=== PATIENT | male | born 1985 | race Caucasian/White ===

== ENCOUNTER 2019-02-24 08:33 | Emergency (ER) | payer BC, OTHER ==
[2019-02-24 08:43] VITALS: BP 128/79
--- NOTE | 2019-02-24 10:16 | UC ---
GI Bleed HPI - HPI Summary HPI Summary: PATIENT HAS HAD 6-8 MONTHS OF INTERMITTENT WATERY DIARRHEA WHICH SEEMS TO BE WORSE AFTER STRENUOUS EXERCISE. NO CLEAR ASSOCIATION WITH FOOD. NO NAUSEA/ VOMITING. NO PERSONAL HISTORY OF INFLAMMATORY BOWEL DISEASE. STATES HE FEELS LIKE HIS INTESTINAL/DIGESTIVE TRACT HAS BEEN "OFF" FOR SOME YEARS. YESTERDAY HE HAD A SOFT BOWEL MOVEMENT AND WHEN HE WIPED HE NOTICED BRIGHT RED BLOOD ON THE TOILET PAPER. THIS MORNING HE HAD A BOWEL MOVEMENT WHICH HE REPORTS WAS HAKAN BLOOD. HAS SOME MILD LEFT LOWER QUADRANT DISCOMFORT. NO FEVER. NO NAUSEA/VOMITING. FATHER DIAGNOSED WITH COLON CANCER IN HIS 60S. - History Of Current Complaint Chief Complaint: UCGI Stated Complaint: PERSONAL Time Seen by Provider: 02/24/19 09:18 Hx Obtained From: Patient Onset/Duration: Sudden Onset, Gradual Onset, Lasting Days, Still Present Severity: Bright Red Blood per Rectum Severity Initially: Moderate Severity Currently: Moderate Pain Intensity: 2 Pain Scale Used: 0-10 Numeric Associated Pain: None Associated Signs And Symptoms: Negative: Back Pain, Dizziness, Weakness, Syncope , Constipation, Nausea, Rectal Pain - Allergies/Home medications Allergies/Adverse Reactions: Allergies Allergy/AdvReac Type Severity Reaction Status Date / Time doxycycline Allergy See Comment Verified 02/24/19 08:43 Home Medications: Home Medications Sertraline HCl [Zoloft] 50 mg PO 02/24/19 [History] PMH/Surg Hx/FS Hx/Imm Hx Psychological History: Depression - Surgical History Surgical History: None - Family History Family History: COLON CANCER - DAD - Social History Alcohol Use: Weekly Substance Use Type: None Smoking Status (MU): Never Smoked Tobacco Review of Systems All Other Systems Reviewed And Are Negative: Yes Constitutional: Positive: Negative Respiratory: Positive: Negative Cardiovascular: Positive: Negative Gastrointestinal: Positive: Abdominal Pain, Diarrhea, Other - BLOOD PER RECTUM. Negative: Vomiting, Nausea Physical Exam Triage Information Reviewed: Yes Appearance: Well-Appearing, No Pain Distress, Well-Nourished Vital Signs: Initial Vital Signs Temp 98.6 F 02/24/19 08:40 Pulse 54 02/24/19 08:40 Resp 18 02/24/19 08:40 BP 128/79 02/24/19 08:40 Pulse Ox 100 02/24/19 08:40 Vital Signs Reviewed: Yes Eyes: Positive: Conjunctiva Clear ENT: Positive: Hearing grossly normal Neck: Positive: Supple Respiratory Exam: Normal Cardiovascular Exam: Normal Abdomen Description: Positive: Nontender, Soft. Negative: CVA Tenderness (R), CVA Tenderness (L), Distended, Guarding Bowel Sounds: Positive: Present Musculoskeletal: Positive: No Edema Neurological: Positive: Alert Psychological: Positive: Age Appropriate Behavior Skin: Negative: Rashes UC Physical Exam Vital Signs On Initial Exam: Initial Vitals Temp Pulse Resp BP Pulse Ox 98.6 F 54 18 128/79 100 02/24/19 08:40 02/24/19 08:40 02/24/19 08:40 02/24/19 08:40 02/24/19 08:40 - Rectal Exam Rectal Exam: Normal Rectal Tone, No Mass, Heme Positive Stool Diagnostics - Laboratory Lab Results: HEMOCCULT POSITIVE Bleed Course/Dx - Course Course Of Treatment: FOBT POSITIVE. NO EXTERNAL HEMORRHOIDS ON EXAM. PATIENT NEEDS GI EVALUATION. ADVISED TO CALL TODAY FOR A FOLLOW-UP APPOINTMENT. CBC AND CMP DRAWN. STOOL KIT PROVIDED. TO THE ER IF SYMPTOMS WORSEN. - Differential Dx/Diagnosis Provider Diagnosis: Blood per rectum Discharge - Sign-Out/Discharge Documenting (check all that apply): Patient Departure All imaging exams completed and their final reports reviewed: No Studies - Discharge Plan Condition: Stable Disposition: HOME Patient Education Materials: Rectal Bleeding (ED) Referrals: Cathy Wilder NP [Nurse Practitioner] - If Needed Additional Instructions: OCCULT TEST FOR BLOOD IN THE STOOL TODAY WAS POSITIVE. YOU REQUIRE FURTHER EVALUATION BY GI. CALL THEIR OFFICE TODAY TO SCHEDULE AN APPOINTMENT FOR THIS WEEK OR NEXT. KEEP A SYMPTOM DIARY TO SEE IF YOU CAN DETERMINE ANY EXACERBATING SUBSTANCES. LABS DRAWN TODAY INCLUDE A BLOOD COUNT AND METABOLIC PANEL. STOOL KIT PROVIDED TODAY. RETURN IT TO THE LAB ON [address] WITH A SAMPLE TO SEND OUT FOR TESTING, GO TO THE ER WITHOUT FAIL IF YOU DEVELOP WORSENING HAKAN BLOOD PER RECTUM, ABDOMINAL PAIN, NAUSEA/VOMITING, FEVER, SHORTNESS OF BREATH, CHEST PAIN, PERSISTENT RAPID HEART RATE, FAINTNESS OR ANY OTHER CONCERNING SYMPTOMS. [facility] Address: [address], [place] [address] - Billing Disposition and Condition Condition: STABLE Disposition: Home
[2019-02-24 12:44] LABS: ABS Eosinophils 0.1 10^3/ul (0-0.6); ABS Lymphocytes 1.8 10^3/ul (1.0-4.8); ABS Monocytes 0.6 10^3/ul (0-0.8); ABS Neutrophils 5.2 10^3/ul (1.5-7.7); Eosinophil % 0.8 %; Hematocrit 48 % (42-52); Hemoglobin 16.4 g/dL (14.0-18.0); Lymphocyte % 23.4 %; Mean Corpuscular HGB Conc 34 g/dL (31-36); Mean Corpuscular Hemoglobin 31 pg (27-31); Mean Corpuscular Volume 92 fL (80-94); Mean Platelet Volume 9.8 fL (7.4-10.4); Nucleated Red Blood Cells % 0.1; Platelet Count 204 10^3/uL (150-450); Red Blood Count 5.22 10^6 /uL (4.18-5.48); Red Cell Distribution Width 14 % (10-15); White Blood Count 7.7 10^3/uL (3.5-10.8)
[2019-02-24 12:56] LABS: Albumin 4.8 g/dL (3.2-5.2); Calcium 10.1 mg/dL (8.6-10.3); Potassium 4.6 mmol/L (3.5-5.0); Total Bilirubin 0.8 mg/dL (0.2-1.0)
[2019-02-24 13:02] LABS: Albumin/Globulin Ratio 1.8 (1-3); BUN/Creatinine Ratio 17.1 (8-20); EGFR African American 86.9 (>60); EGFR Non-African American 71.8 (>60); Globulin 2.6 g/dL (2-4); Total Protein 7.4 g/dL (6.4-8.9)
== END 2019-02-24 10:25 | disposition home or self-care (01) ==
LOC: UCEAST 08:33
DX: K62.5 Hemorrhage of anus and rectum (principal); F32.9 Major depressive disorder, single episode, unspecified; R10.32 Left lower quadrant pain
CPT/HCPCS: 36415; 80053; 85025; 99211; G0463